=== PATIENT | male | born 1945 | race Two or more races ===

== ENCOUNTER 2022-04-29 09:19 | Outpatient (CLI) | payer OTHER ==
[~2022-04-29] VITALS: Ht 175.3 cm; Wt 73.9 kg
== END 2022-04-29 12:58 | disposition home or self-care (01) ==
LOC: LAB 09:19
PROVIDERS: ATTEND Orthopaedic Surgery
DX: D64.9 Anemia, unspecified (principal); E88.9 Metabolic disorder, unspecified; D68.8 Other specified coagulation defects; N39.0 Urinary tract infection, site not specified; Z76.89 Persons encountering health services in other specified circumstances; I10 Essential (primary) hypertension

== ENCOUNTER 2022-05-08 11:12 | Emergency (ER) | payer OTHER ==
[~2022-05-08] VITALS: Ht 175.3 cm; Wt 74.8 kg
[2022-05-08] MEDS ORDERED: CLARITIN10 M1 (11:29)
[2022-05-08] MEDS ORDERED: PEPCID AC10 MG (11:29)
[2022-05-08] MEDS ORDERED: PROSCAR5 MG (11:30)
[2022-05-08] MEDS ORDERED: ASA81 MG (11:30)
[2022-05-08] MEDS ORDERED: OMEPRAZOLE MAGN20 MG (11:30)
== END 2022-05-08 14:28 | disposition home or self-care (01) ==
LOC: ER 11:12
DX: R07.89 Other chest pain (principal); Z20.822 Contact with and (suspected) exposure to COVID-19; Z88.0 Allergy status to penicillin; Z88.8 Allergy status to other drugs, medicaments and biological substances